=== PATIENT | female | born 1955 | race Caucasian/White ===

== ENCOUNTER 2016-11-27 05:25 | Inpatient (IN) | payer MEDICARE ==
--- NOTE | ~2016-11-27 | CT72 ---
[facility] A Service of [facility] RADIOLOGY TEXT RESULTS PATIENT: ADRYAN ESTEVEZ LOCATION: [facility] 304-01 : [birth year] UNIT #: [id number] AGE: [address]: Angélica Carvalho MD SEX: F ORDER DR: [id number] [facility] [address] [facility]. [place], [place] [address] [id number] I MR#: [id number] Acc #: [id number] NAME: ADRYAN ESTEVEZ : 1955 SEX: F STUDY DATE/TIME: 11/27/2016 05:39 UNIT: A U ROOM: [facility] STUDY DESCRIPTION: CT Head Wo Contrast Stroke Attending Physician: Anders Cleveland M.D. Ordering Physician: Ed Doctor [id number] [facility] Primary Care Physician: Primary Care Physician No MEDICAL IMAGING REPORT This report is preliminary unless electronic signature is present EXAM Head CT 11/27/2016 05:39 INDICATION Patient found around 04:00 a.m. with left-side facial drooping. Patient unresponsive. History of stroke. TECHNIQUE This CT examination was performed with one or more of the following radiation dose reduction techniques: automatic exposure control, adjustment of mA and/or kV according to patient size, and iterative reconstruction. FINDINGS Axial images were obtained from the base to the vertex without contrast. No comparison. There is an old large area of encephalomalacia in the left cerebral hemisphere from a prior MCA distribution infarct. Low attenuation change is now noted in the right MCA distribution in the frontal lobe and parietal lobe worrisome for developing subacute infarct. MRI recommended if patient is a candidate. No acute hemorrhage is seen. The exam is motion degraded. Chronic mucosal thickening is noted in the right maxillary sinus. There is atherosclerotic disease in the carotid siphons. No skull fracture. IMPRESSION 1. Probable rather large subacute right MCA distribution infarct. MRI for follow up is recommended if patient is a candidate. 2. Large old left MCA distribution infarct with extensive encephalomalacia in the left cerebral hemisphere. 3. No acute hemorrhage is seen. ADDENDUM [facility] A Service of [facility] RADIOLOGY TEXT RESULTS PATIENT: ADRYAN ESTEVEZ LOCATION: [facility] 304-01 : [birth year] UNIT #: [id number] AGE: [address]: Angélica Carvalho MD SEX: F ORDER DR: Old lacunar infarcts are noted in the left cerebellar hemisphere. STAT * RESULT Dictated by... Efrem Bower Jr., M.D. THIS IS AN ELECTRONICALLY VERIFIED REPORT Efrem Bower Jr., M.D. at 11/30/2016 8:35 AM YOLA/robe TD: 11/27/2016 05:59 JOB #: [id number] MEDICAL IMAGING REPORT Page 1 of 1 COPY
--- NOTE | ~2016-11-27 | EKG ---
PATIENT: ADRYAN ESTEVEZ UNIT #: [id number] Ventricular Rate: 110 BPM Atrial Rate: 110 BPM P-R Interval: 138 ms QRS Duration: 78 ms Q-T Interval: 324 ms QTC Calculation(Bezet): 438 ms Calculated R Savannah: 153 degrees Calculated T Savannah: 162 degrees Diagnosis Line: Suspect arm lead reversal, interpretation Diagnosis Line: assumes no reversal Diagnosis Line: Sinus tachycardia Diagnosis Line: Low voltage QRS Diagnosis Line: Left posterior fascicular block Diagnosis Line: Nonspecific ST and T wave abnormality Diagnosis Line: Abnormal ECG Diagnosis Line: Confirmed by ASUNCION RUIZ MD ([id number]) on Diagnosis Line: 11/28/2016 4:24:10 PM INTERPRETING MD: SARA ZENDEJAS
--- NOTE | ~2016-11-27 | DS ---
Unit #: [id number] #: [id number] Patient: ADRYAN ESTEVEZ [id number] [address] [place], [place] [address] [id number] I MR#: [id number] NAME: ADRYAN ESTEVEZ ROOM: 304 Age: 61 Sex: F Admission Date: 11/27/2016 : 1955 Discharge Date: 12/02/2016 Attending Physician: Angélica Carvalho M.D. Primary Care Physician: No Primary Care Physician DISCHARGE SUMMARY ADDENDUM HOSPITAL COURSE Patient remained in the hospital due to bed availability at [facility]. She has been transitioned to all medications via PEG, as previously dictated yesterday, and blood pressure has remained stable. She is currently tolerating Jevity 1.5 at 35 mL an hour and this can be titrated up to the goal of 45 mL an hour upon arrival at [facility]. I will note, in regards to patient's decayed teeth, the plan is for her to follow up with Dr. Becker as an outpatient for removal of these teeth. This would likely best be done prior to the initiation of Plavix; however, due to the fact that it has been a rather chronic condition, I think it can also safely be held off until patient is back home. DISCHARGE MEDICATIONS As previously noted. Dictated by... Angélica Carvalho M.D. GLORIA/ludin TD: 12/02/2016 12:06 JOB #: [id number] DISCHARGE SUMMARY Page 1 of 1 X Angélica Carvalho MD X DISCHARGE SUMMARY
--- NOTE | ~2016-11-27 | CO ---
Unit #: [id number] #: [id number] Patient: ADRYAN ESTEVEZ [id number] [address] [place], [place] [address] [id number] I MR#: [id number] NAME: ADRYAN ESTEVEZ ROOM: 304 Age: 61 Sex: F Admission Date: 11/27/2016 : 1955 Attending Physician: Angélica Carvalho M.D. Primary Care Physician: Primary Care Physician No Consultation Date: 11/27/2016 CONSULTATION REPORT REASON FOR CONSULTATION For evaluation of an abscessed tooth. HISTORY OF PRESENT ILLNESS Ms. Estevez is a 61-year-old female, who was found unresponsive by her . She was brought to [facility] Emergency Room where she was examined. The patient does have a history of previous stroke, which resulted in some paralysis of her right side. The states that she does wear partial dentures, but has not complained of any dental pain, has not had any orofacial swelling or drainage. He was unaware of an abscessed tooth. The patient had a CAT scan done in the emergency department, which radiology identified a radiolucency apical to a right maxillary first molar, which is indicative of a dental abscess. Oral Surgery was then consulted for evaluation of tooth and determine if that has any role in the patient's current condition. PHYSICAL EXAMINATION GENERAL: The patient was lying in bed, appeared to be comfortable, was nonverbal. HEENT: On examination, she does not have any facial swelling or erythema. Intraorally, she is missing quite a few teeth. In the right maxillary quadrant, she does have decay of tooth #5, which was fractured. She also has mobility of tooth #3. There is no vestibular swelling. There is no drainage. No erythema. No signs of an abscessed tooth. The patient does not complain or shows any signs of pain on examination of these teeth. IMPRESSION I believe the patient does have an abscess apical to tooth #3. A second possibility is that due to the mobility of tooth #3, she has some extensive bone loss, which will show signs of radiolucency on film, which could also be the source for the radiolucency on the CAT scan. There is no current infection that is draining. No current signs or symptoms of the patient having an abscessed tooth. I do not believe that this is the source of the patient's current condition. I do believe that teeth numbers #3 and #5 need to be extracted to prevent a future abscess or infection for the patient. I explained to her and he agrees that these teeth need to be extracted. I will confer with Ms. Estevez's other doctors in regard to timing for extraction of these teeth. My personal opinion is that these teeth can either be extracted at bedside or we can wait until the patient is discharged and may extract it in an office setting dictated by the patient's current treatment and her diagnosis, especially in regard to any anticoagulation. Unit #: [id number] #: [id number] Patient: ADRYAN ESTEVEZ Dictated by... Jayden Becker D.M.D., [facility] TRS/modl TD: 11/28/2016 02:59 JOB #: [id number] CONSULTATION REPORT Page 1 of 1 X Jayden Becker DMD CONSULTATION REPORT
--- NOTE | ~2016-11-27 | CR72 ---
[facility] A Service of [facility] RADIOLOGY TEXT RESULTS PATIENT: ADRYAN ESTEVEZ LOCATION: [facility] 304-01 : [birth year] UNIT #: [id number] AGE: [address]: Angélica Carvalho MD SEX: F ORDER DR: [id number] [facility] [address] [facility]. [place], [place] [address] [id number] E MR#: [id number] Acc #: [id number] NAME: ADRYAN ESTEVEZ : 1955 SEX: F STUDY DATE/TIME: 11/27/2016 6:53 UNIT: CHRISTOPHER ROOM: STUDY DESCRIPTION: CR Chest Single View Portable Attending Physician: Tung Gold M.D. Ordering Physician: Tung Gold M.D. Primary Care Physician: Primary Care Physician No MEDICAL IMAGING REPORT This report is preliminary unless electronic signature is present EXAM Portable chest HISTORY Shortness of breath, stroke, symptoms beginning tonight. FINDINGS An AP portable view is obtained. The heart size is normal. Lungs are hyperinflated. There is an infiltrate in the left base. It appears slightly nodular in character. No pleural fluid is seen. There is an old healed right humeral fracture. CONCLUSION 1. Radiographic changes consistent with COPD. 2. Left basilar infiltrate. Dictated by... Ishmael Pham M.D. THIS IS AN ELECTRONICALLY VERIFIED REPORT Ishmael Pham M.D. at 11/30/2016 7:16 AM VIKTORIYA/robe TD: 11/27/2016 08:25 JOB #: [id number] MEDICAL IMAGING REPORT Page 1 of 1 COPY
--- NOTE | ~2016-11-27 | XA166 ---
[facility] A Service of [facility] & [facility] RADIOLOGY TEXT RESULTS PATIENT: ADRYAN ESTEVEZ LOCATION: [facility] 304-01 : 57 UNIT #: [id number] AGE: [address]: Angélica Carvalho MD SEX: F ORDER DR: [id number] [place] [id number] [facility]. [place], [place] [address] [id number] I MR#: [id number] Acc #: [id number] NAME: ADRYAN ESTEVEZ : 1955 SEX: F STUDY DATE/TIME: 11/30/2016 8:49 UNIT: C3A U ROOM: [facility] STUDY DESCRIPTION: XA PICC Line Placement WO Port Attending Physician: Angélica Carvalho M.D. Ordering Physician: Angélica Carvalho M.D. Primary Care Physician: No Primary Care Physician MEDICAL IMAGING REPORT This report is preliminary unless electronic signature is present EXAM Left sided PICC line placement INDICATION Need for IV access in a patient with an acute stroke on November 27, 2016. PRE-PROCEDURE The procedure was explained to the patient and/or patient pharmaceutical service representative including risks, benefits, potential complications and potential for alternative forms of treatment. Informed consent was obtained, and prior to initiating the procedure a formal timeout procedure was performed. PROCEDURE Using full standard sterile barrier technique, including caps, gowns, gloves, masks, as well as sterile skin preparation and standard sterile draping, the left arm was prepped and draped in the usual fashion, and real-time sterile ultrasound guidance was used to localize an arm vein and to confirm vessel patency. A hard copy ultrasound image was recorded. After local anesthesia with 1% Xylocaine, the vein was punctured using real-time sterile ultrasound guidance, and an 0.018 guidewire was advanced into the superior vena cava, using fluoroscopic guidance. A 5 British dual-lumen PICC was then measured and deployed with the tip positioned in the superior vena cava. The position of the line was documented with a radiographic image. The line was secured in place with an adhesive dressing and an antibiotic patch was applied. Total fluoro time was 0.1 minutes. AK 1 mGy. IMPRESSION Successful placement of a 5 British dual lumen PowerPICC via the arm under ultrasound and fluoroscopic guidance. The tip of the PICC is in good position in the superior vena cava. [facility] A Service of [facility] RADIOLOGY TEXT RESULTS PATIENT: ADRYAN ESTEVEZ LOCATION: [facility] 304-01 : [birth year] UNIT #: [id number] AGE: [address]: Angélica Carvalho MD SEX: F ORDER DR: Dictated by... Beatriz Doe M.D. THIS IS AN ELECTRONICALLY VERIFIED REPORT Beatriz Doe M.D. at 12/01/2016 5:54 PM AFF/aa TD: 12/01/2016 08:46 JOB #: [id number] MEDICAL IMAGING REPORT Page 1 of 1 COPY
--- NOTE | ~2016-11-27 | CO ---
Unit #: [id number] #: [id number] Patient: ADRYAN ESTEVEZ [id number] [address] [place], [place] [address] [id number] I MR#: [id number] NAME: ADRYAN ESTEVEZ ROOM: 304 Age: 61 Sex: F Admission Date: 11/27/2016 : 1955 Attending Physician: Angélica Carvalho M.D. Consultation Date: 11/27/2016 CONSULTATION REPORT PRIMARY CARE PHYSICIAN Not known, but I believe she goes to [facility]. PROBLEM LIST 1. Prior stroke in 1998, which was left MCA with possible global aphasia and also right-sided weakness. 2. History of seizures since then. 3. Spastic right side hemiplegia. 4. Status post hysterectomy. 5. Status post right wrist surgery after a seizure and a fall. 6. She apparently is a daily drinker and she apparently continues to be a smoker. HISTORY OF PRESENT ILLNESS This is a 61-year-old apparently right-handed white female with prior strokes, who lives at home, has been pretty well considering large MCA stroke that she has had. She is able to communicate with her . She even walks some. She occasionally has seizures and it looks like she may have focal generalized seizure. She has not seen a neurologist lately. Her last normal was 8:30 when she went to bed and around 4:00 this morning, the woke up. He felt that she was drooling and there may be some facial asymmetry and that can sometimes be seen with seizure, but nonetheless she was brought in. Initially, code stroke was called in, but she was outside the window for tPA or any intervention, so we decided to go conservative. CT of the head did not show anything major. CTA showed left M1 segment occlusion, which was probably old and which is where the stroke is. Also there is a concern that she may have a molar collection of fluid, which could be a molar teeth abscess and she may have UTI, so now she is being admitted for further workup. Again not a tPA or interventional candidate. She may have missed her doses of Tegretol in the past and she has had seizures like that. Her Tegretol level is pending. Her dosages not really known and we are trying to find all the records. No change in medication, but compliance has not been guaranteed. PAST MEDICAL HISTORY As discussed above. PAST SURGICAL HISTORY As discussed above. Unit #: [id number] #: [id number] Patient: ADRYAN ESTEVEZ ALLERGIES None known to me. HOME MEDICATIONS Aspirin I believe 81 mg, Trental 400 mg ?, Zanaflex, other medications not known to me. FAMILY HISTORY No history of stroke in young. SOCIAL HISTORY She is and lives with her . She is a pack a day smoker and also daily alcohol consumer, but the details not known at present. REVIEW OF SYSTEMS Could not be obtained because of her aphasia and today has decreased level of consciousness. PHYSICAL EXAMINATION VITAL SIGNS: Temperature 98.5, pulse is 96, respirations 16 to 18, blood pressure 164/94, nonverbal pain was 2, O2 saturations were 98% to 100%, weight of 53 kg. NEUROLOGIC: The patient is arousable. She apparently communicated with the family members. She really did not follow commands for me. She was nonverbal for me. Cranial nerve examination demonstrate respond to threats in the primary arana. Full arana are questionable. Eye movements are conjugate. Pupils are sluggishly reactive. I really did not see any significant facial asymmetry. Hearing seemed to be intact. Tongue was midline. I could not visualize oropharynx or uvula. Head turning was spontaneous. Motor examination, she has spasticity on the right side. Movement on the right side was 2 to 3-. Left side, she is withdrawing at least 4/5. Sensory examination, respond to pain all over. I could not any reflexes. Toes are upgoing on the right and downgoing on the left. Gait and coordination were not evaluated. DIAGNOSTIC STUDIES LABORATORY RESULTS: Reviewed. Her ABGs are unremarkable. Random glucose is 113, sodium was 131, ammonia was 24. Alcohol level was less than 5. White count is 12.3, platelet count is 300. Urine drug screen was negative. Urinalysis showed trace leukocyte esterase and protein positive, 2 to 5 wbc's with 3+ bacteria. IMAGING STUDIES: Including CT scan and CTA, which the CT I reviewed personally. IMPRESSION 1. Decreased level of consciousness in a patient with prior stroke. 2. History of seizure. 3. Could be infection. PLAN Unit #: [id number] #: [id number] Patient: ADRYAN ESTEVEZ I will check her MRI. I will check her other labs and we will see how things go. Cardiology workup is in progress. I will check hemoglobin A1c and further treatment will be based on our findings and how she improves. I am also considering Vimpat instead of Tegretol as her sodium is running a bit low and she has had seizure though the question is where she noncompliant. I will follow her and see how things go. I will keep you informed and I talked to her and son and other family members and also to Cardiology and if she has stroke and further will be based on that. Otherwise seizures or infection causing unmasking is my working diagnoses and I will follow up. Call me for any other questions, issues, or concerns. Dictated by... Dionisio Denny/anthony TD: 11/28/2016 23:06 JOB #: [id number] CONSULTATION REPORT Page 1 of 1 X Kaiser Hansen MD X CONSULTATION REPORT
--- NOTE | ~2016-11-27 | CT24 ---
[facility] A Service of [facility] & [facility] RADIOLOGY TEXT RESULTS PATIENT: ADRYAN ESTEVEZ LOCATION: [facility] 304-01 : 56 UNIT #: [id number] AGE: [address]: HECTOR MILLER MD SEX: F ORDER DR: [id number] [facility] [address] [facility]. [place], [place] [address] [id number] E MR#: [id number] Acc #: [id number] NAME: ADRYAN ESTEVEZ : 1955 SEX: F STUDY DATE/TIME: 11/27/2016 6:07 UNIT: [facility] ROOM: STUDY DESCRIPTION: CT Angio Neck Stroke Attending Physician: Tung Gold M.D. Ordering Physician: Chandler Mabry M.D. Primary Care Physician: Primary Care Physician No MEDICAL IMAGING REPORT This report is preliminary unless electronic signature is present EXAM CT angio head and neck HISTORY Unresponsive, altered mental status with history of known stroke. Found around 4 a.m., left facial droop and history of seizure. This CT exam was performed with one or more of the following radiation dose reduction techniques: automatic exposure control, adjustment of mA and/or kV according to patient size, and iterative reconstruction. FINDINGS CT angiography of the head and neck vessels performed during the intravenous administration of 100 mL Isovue 370. There is an earlier head CT for comparison. Vascular calcifications noted at the arch and involving the proximal left subclavian with mild narrowing of the proximal left subclavian. Evaluation of the right carotid system shows mild partially calcified plaque at the right carotid bifurcation but by NASCET criteria there is essentially 0% stenosis. There is disease in the precavernous right internal carotid artery with mild to moderate stenosis likely. Assessment of left carotid system shows partially calcified plaque at the left carotid bifurcation. By NASCET criteria 0% stenosis is suspected. There is calcified plaque in the cavernous internal carotid artery on the left and this results in at least moderate stenosis. Evaluation of the left vertebral artery shows vessel to be patent throughout the neck and intracranially. Right vertebral artery patent throughout the neck and intracranially, the left is mildly dominant. [facility] A Service of [facility] & [facility] RADIOLOGY TEXT RESULTS PATIENT: ADRYAN ESTEVEZ [id number] [birth year] UNIT #: [id number] AGE: [address]: HECTOR MILLER MD SEX: F ORDER DR: Assessment of the intracranial circulation shows cutoff of the left M1 vessel essentially at its origin. This is consistent with a large area of encephalomalacia in the left MCA territory and this should be a chronic finding. There is an anterior communicating artery present. The left P1 vessel is hypoplastic. There is essentially origin to the left posterior cerebral artery distribution. There is a moderate size right posterior communicator and an anterior communicator. No new intracranial vascular cutoff is suspected. No new central stenosis is suspected. No intracranial aneurysm is suspected allowing for the technical limitation of CT angiography in general for evaluation for aneurysm at the level of the skull base at this institution. There are some emphysematous changes at lung apices. There are degenerative changes in the cervical spine with asymmetric left side facet arthritis. The patient is partially edentulous. There is significant dental disease including large area of lucency around right maxillary molar tooth roots worrisome for abscess. Dental consultation recommended. Polypoid mucosal disease in the right maxillary sinus. Mild mucosal thickening in the ethmoid air cells and mucosal thickening in the left frontal sinus. IMPRESSION 1. There is an intracranial vascular cutoff at the origin of the left M1 vessel. This should, however, be chronic given that there is a large area of encephalomalacia in the left MCA territory. No recent intracranial vascular cutoff is suspected. 2. By NASCET criteria, no hemodynamically significant narrowing is suspected at either carotid bifurcation. There is disease at the bifurcation. Additionally, there is disease involving the bilateral carotid siphons, this appears to be hemodynamically significant and probably worse on the left than the right. 3. Intracranial vascular variations detailed above. No focal central stenosis is seen. 4. Lucency around roots of right maxillary molar tooth worrisome for dental abscess. Given size of area of involvement suggest dental consultation for management. Area of lucency about 1.5 cm in diameter total. Dictated by... Sarah Paulino M.D. THIS IS AN ELECTRONICALLY VERIFIED REPORT Sarah Paulino M.D. at 11/27/2016 2:50 PM MARIO/neil TD: 11/27/2016 07:30 JOB #: [id number] MEDICAL IMAGING REPORT [facility]. [facility] A Service of [facility] & [facility] RADIOLOGY TEXT RESULTS PATIENT: ADRYAN ESTEVEZ LOCATION: [facility] 304-01 : [birth year] UNIT #: [id number] AGE: [address]: HECTOR MILLER MD SEX: F ORDER DR: Page 1 of 1 COPY
--- NOTE | ~2016-11-27 | DS ---
Unit #: [id number] #: [id number] Patient: ADRYAN ESTEVEZ [id number] [address] [place], [place] [address] [id number] MR#: [id number] NAME: ADRYAN ESTEVEZ ROOM: 304 Age: 61 Sex: F Admission Date: 11/27/2016 : 1955 Discharge Date: 12/01/2016 Attending Physician: Angélica Carvalho M.D. Primary Care Physician: No Primary Care Physician DISCHARGE SUMMARY PRINCIPAL DIAGNOSES 1. 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 2. Non-ST segment elevation myocardial infarction. 3. Dysphagia status post percutaneous endoscopic gastrostomy tube placement. 4. Escherichia coli urinary tract infection. 5. Aspiration pneumonia. 6. Sepsis secondary to aspiration pneumonia. 7. High anion gap metabolic acidosis likely secondary to starvation, now resolved. 8. Vitamin B12 deficiency with vitamin B12 level of 215. 9. Hypertension. 10. Underlying seizure disorder secondary to prior stroke. 11. Poor dentition with decayed tooth number 5 and chronic abscess of tooth number 3. 12. Hypokalemia. 13. Chronic deconditioning. 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 CONSULTANTS 1. Dr. Hansen, neurology. 2. Dr. Cade, cardiology. 3. Dr. Becker, oral surgery. 4. Dr. Foss, promotions assistant sales marketing. PROCEDURES PEG tube placement by Dr. Foss on December 01, 2016. This occurred without complication. I will note the patient had a large hiatal hernia and a long segment of Parson esophagus. Gastritis and duodenitis also noted and superficial ulcers in stomach and duodenum. DIAGNOSTIC STUDIES CARDIOVASCULAR: Two-dimensional echocardiogram on November 27, 2016 with ejection fraction of 55% to 60%. Mild tricuspid regurgitation noted. Right ventricular systolic pressure of 40 mmHg. IMAGING: CT of the head without contrast on November 27, 2016 with large right MCA distribution infarct, large old left distribution infarct with extensive encephalomalacia in the left cerebral hemisphere. CT angiogram of the head and neck on November 27, 2016 with intravascular cutoff at the origin of the left M1 vessel. This is chronic. No hemodynamically significant narrowing at either carotid bifurcation; Unit #: [id number] #: [id number] Patient: ADRYAN ESTEVEZ however, there is disease noted. Disease in the bilateral carotid siphons. There is lucency around the root of the right maxillary molar tooth. Chest x-ray on November 27, 2016 with changes of COPD, left basilar infection noted. MRI of the brain without contrast on November 27, 2016 with a large infarct involving the right MCA distribution primarily the posterior distribution. There is some edema and some mass effect. Extensive encephalomalacia involving the left MCA distribution. CT of the head without contrast on November 28, 2016 with a moderate sized subacute infarct in the right MCA distribution in the posterior right temporal and parietal lobes with small areas of associated hemorrhage measuring 1 cm in size. Chronic left MCA distribution infarct with associated encephalomalacia noted. CLINICAL HISTORY AND HOSPITAL COURSE Ms. Estevez is a 61-year-old female who presented to the emergency department with increasing confusion and questionable seizure at home. The patient was unable to be aroused at home and was foaming at the mouth. Please refer to H and P for further details. In the emergency department the patient underwent CT scan of the head without contrast revealing a large right MCA stroke, and she was subsequently admitted. Dr. Hansen was consulted. CT of head and neck was done, as was MRI of the brain, and did reveal, indeed, right MCA stroke. The patient was started on appropriate medications, namely aspirin. There is some concern perhaps this is embolic in origin due to her prior left MCA stroke. However, she had no evidence of dysrhythmia during hospitalization. Also, given her mild hemorrhage associated with her stroke, she is unsafe to anticoagulate at this point. Guidelines do indicate she can be on dual antiplatelet therapy; thus, 2 weeks following her stroke we are going to give aspirin and Plavix. Unfortunately, if the patient develops any further stroke, she will need Coumadin therapy. SAMIR was not done due to her other co-morbid conditions and her difficulty swallowing and with discussion with family who is in agreement. The patient was also found to have elevated troponin upon presentation, peaked at 1.34 and then trended down. Given her other medical co-morbidities, medical management only at this time, which will include Plavix, as outlined below. The patient did have associated dysphagia. She has had some dysphagia due to her prior stroke, but this worsened. Ultimately, Dr. Foss was consulted, and the patient underwent PEG tube placement. Tube feeds will begin today with goals as outlined below. The patient was also found to have aspiration pneumonia and E-coli urinary tract infection. She will be placed on Omnicef and will complete treatment that way. Plan to discharge the patient to [facility] when bed is available. DISCHARGE CONDITION Stable. Unit #: [id number] #: [id number] Patient: ADRYAN ESTEVEZ DISCHARGE STATUS Discharge to [facility]. DISCHARGE MEDICATIONS 1. Tegretol 400 mg per PEG b.i.d. 2. Metoprolol tartrate 25 mg per PEG b.i.d. 3. Lipitor 40 mg per PEG at bedtime. 4. Clonidine patch 0.2 mg topically on Sundays. 5. Aspirin 81 mg per PEG daily. 6. Protonix 40 mg per PEG daily. 7. Zanaflex 4 mg per PEG at bedtime. 8. Vitamin B12 - 1,000 mcg per PEG daily. 9. Omnicef 300 mg per PEG b.i.d. for 4 days. 10. Plavix 75 mg per PEG daily beginning on December 12, 2016. 11. Lisinopril 20 mg per PEG daily. 12. [place] 5/325 mg 1 per PEG q.6 hours p.r.n. pain. 13. Jevity 1.5 with a goal rate of 45 mL an hour. 14. Free water 200 mL per PEG q.6 hours. DISCHARGE INSTRUCTIONS Patient will remain NPO and receive nutrition via PEG. She can increase her strength per PT and OT at [facility]. Will also need speech therapy. FOLLOW-UP 1. Patient will follow up with Dr. Gabriel Kent of outpatient neurology upon discharge from [facility]. 2. She will follow up with her primary care provider upon discharge from [facility]. 3. Will follow up with Dr. Cade as instructed. NOTE: Time spent on discharge - 54 minutes. Dictated by... Angélica Carvalho M.D. GLORIA/jessa TD: 12/01/2016 13:10 JOB #: [id number] DISCHARGE SUMMARY Page 1 of 1 X Angélica Carvalho MD DISCHARGE SUMMARY
--- NOTE | ~2016-11-27 | A ---
[facility] Nutrition Therapy DATE: 11/30/16 Patient: ADRYAN HENDERSONSHELLY Physician: TAMIA Address: [address] [place] [address] Room/Bed: [address] [place] [address], Zip: [place] [address] Admit Date: 11/27/16 Date of : 56 Height: Weight: 124 56.5 NUTRITIONAL ASSESSMENT: REASON: Consult for enteral nutrition recommendations + low BMI Admitting dx: 61 y/o female admitted with AMS PMH: CVA (1998) with residual R side paralysis, seizures, daily ETOH abuse, 1 ppd smoker Anthropometrics: Ht: 66", Wt: 52.4 kg (115 lbs), BMI: 18.6 (underweight) Past weights: 116 lbs on 05/03/16, 128-130 lbs in 2007 and 11/29 Labs: Na 133, K+ 3.0, Glucose 130, POC 114 (11/30), A1C 5.1 (11/27), lipid panel WNL, no Mg/Phos Meds: Novolog per Accucheks, Thiamine, Vit B12 I/O & Bowel function: Last BM 11/26 Skin Integrity: Intact, bruise LFA, 2+ edema LUE Estimated Nutrition Needs: 1072-6794 kcals per day (30-35 kcals/kg) 52-63 g protein per day (1.0-1.2 g/kg) Fluids consistent with kcal needs or per MD Assessment: Chart reviewed, events noted. Patient is on 2L nasal cannula, CT of head negative however MRI showed acute infarct of R MCA, CXR concerning for L side PNA. She has a history of daily ETOH abuse, has partial dentures and tooth abscess that will need to be extracted. She is clinically underweight, but her weight appears stable since 2016. She is non-verbal and is therefore inappropriate for interview. She does have a who is not at the bedside at this time, assistant director of nursing is cleaning her up. LAYBOY OPERATOR eval was not performed due to aphasia. She is at risk for refeeding syndrome due to underweight status and hx of daily ETOH abuse. [place] referral placed. See RD recs below, will follow. Dx: Inadequate energy intake r/t aphasia AEB NPO, need for EN. Intervention: Initiate EN, replace lytes prn Monitoring, Evaluation and Goals: 1. EN consistent with estimated nutrition needs. 2. GI function WNL. 3. Labs WNL. [facility] Nutrition Therapy DATE: 11/30/16 Patient: ADRYAN ESTEVEZ Physician: TAMIA Address: [address] [place] [address] Room/Bed: [address] [place] [address], Zip: [place] [address] Admit Date: 11/27/16 Date of : 57 Height: Weight: 124 56.5 4. Gradual weight gain towards a healthy BMI range. Monitor: Per protocol, criteria to determine if above goals met Recommendations: 1. Once medically feasible start enteral nutrition with Jevity 1.5 @ 20 ml/hr and increase by 10 ml q 12 hours until goal rate of 45 ml/hr is reached, to provide 1620 kcals, 69 g protein and 821 ml water. Once at goal rate add free water flushes of 200 ml QID or per MD noting hyponatremia. 2. Replace lytes prn. Check Mg/Phos and monitor closely, as the patient is at risk for refeeding syndrome given her underweight status and daily ETOH abuse. Increase feeds q 12 hours (slowly) as described above. 3. Continue vitamins and add Folic acid. 4. Please weigh q 3 days for monitoring purposes. 5. LAYBOY OPERATOR eval once appropriate. RD will follow hospital course Moderate nutrition risk Respectfully, Gina Sin, JEOVANY, LD Food and Nutritional Services [facility] cc: client file
--- NOTE | ~2016-11-27 | OR ---
Unit #: [id number] #: [id number] Patient: ADRYAN ESTEVEZ [id number] [address] [place], [place] [address] [id number] MR#: [id number] NAME: ADRYAN ESTEVEZ ROOM: 304 Date of Procedure: 12/01/2016 Admission Date: 11/27/2016 Surgeon: Russ Foss M.D. : 1955 Attending Physician: Angélica Carvalho M.D. OPERATIVE REPORT PROCEDURES PERFORMED 1. Esophagogastroduodenoscopy with PEG-tube placement. 2. Esophagogastroduodenoscopy with biopsy. INDICATIONS FOR PROCEDURE The patient with history of recent stroke, unable to eat, with acute dysphagia, undergoing EGD evaluation for PEG-tube placement. MEDICATIONS Monitored anesthesia. POSTOPERATIVE FINDINGS 1. Long segment Parson esophagus along with a large hiatal hernia. No biopsies were taken at this point. 2. Multiple small gastric and duodenal ulcers along with severe gastritis and duodenitis. Biopsies were taken for H. pylori. 3. Successful placement of G-tube via push method. PLAN Please see inpatient detail. Long-term PPI therapy. Parson's surveillance to be determined after discussions with the patient and family. DESCRIPTION OF PROCEDURE The patient was explained of the procedure, risks, and benefits along with risks and benefits of anesthesia. She was brought to the endoscopy room. Propofol anesthesia was given. Bite-block was placed. The scope was passed down the mouth and esophagus, stomach, duodenum, and distal duodenum. Findings as described. Biopsies were taken. A good spot was identified for G-tube placement using transillumination, which was then confirmed with indentation and safe track method. Skin was cleaned and draped. A small incision was made, trocar and cannula were then passed through the incision into the stomach. Guidewire was passed through it and pulled out of the patient's mouth using the snare and scope from the inside. A push method G-tube was placed over at this time, and pulled out of the anterior abdominal wall, where it was secured with an external bumper. The scope was reintroduced into the stomach, inner bumper was nicely in place. No bleeding or other complications were seen inside. Gently, the scope was pulled out. She tolerated it well. No major complications were seen. Unit #: [id number] #: [id number] Patient: ADRYAN ESTEVEZ Dictated by... Dionisio Edwards/anthony TD: 12/01/2016 08:58 JOB #: [id number] OPERATIVE REPORT Page 1 of 1 X Russ Foss MD PROCEDURE OPERATIVE NOTE
--- NOTE | ~2016-11-27 | HP ---
Unit #: [id number] #: [id number] Patient: ADRYAN ESTEVEZ [id number] [address] [place], [place] [address] [id number] I MR#: [id number] NAME: ADRYAN ESTEVEZ ROOM: 304 Age: 61 Sex: F Admission Date: 11/27/2016 : 1955 Attending Physician: Anders Cleveland M.D. Primary Care Physician: No Primary Care Physician HISTORY AND PHYSICAL CHIEF COMPLAINT Altered mental status. HISTORY OF PRESENT ILLNESS The patient is a 61-year-old female with history of a CVA back in 1998 with right-sided weakness and seizures. The last seizure was a week ago. Brought to the emergency room complaining of altered mental status. The patient is nonverbal, and the history is obtained by speaking with the patient's and the patient's [id number] at the bedside. The patient was doing fine yesterday and had a walk with the patient's . The patient was found to have altered mental status earlier this morning around 4:30 a.m. The patient was found to have grinding teeth associated with foam coming from the mouth and (1) incontinence. The patient was brought to the emergency room for possible seizures. The patient had a stroke workup in the emergency room with negative CT of the head. The patient had a chest x-ray that showed a left basilar infiltrate concerning for pneumonia, and the lactic acid was 2.3, and the patient is being admitted for the above reasons. In the emergency room the patient had a bump in troponin up to 0.17, and cardiology consult has been placed. PAST MEDICAL HISTORY History of a stroke and seizures. The patient has alcohol abuse, paralyzed on the right side. PAST SURGICAL HISTORY History of hysterectomy, right wrist broken. HOME MEDICATIONS She is on Tegretol, aspirin and Zanaflex. ALLERGIES No known drug allergies. SOCIAL HISTORY Smokes a pack of cigarettes daily and drinks alcohol. No illicit drug abuse. REVIEW OF SYSTEMS Unable to obtain. PHYSICAL EXAMINATION GENERAL: The patient is lying in the bed, not in acute distress. Unit #: [id number] #: [id number] Patient: ADRYAN ESTEVEZ VITALS: Temperature 98.5 rectally, pulse 104, respiratory rate 18, blood pressure 160/74, satting 98% on room air. HEENT: Head atraumatic, normocephalic. Dry mucous membranes. NECK: Supple. LUNGS: Decreased air entry at the bases. Positive for rhonchi. HEART: Regular rhythm. Tachycardic. ABDOMEN: Soft. EXTREMITIES: No cyanosis. No clubbing. Right-sided paralysis. NEUROLOGIC: Patient is lethargic and nonverbal. DIAGNOSTIC STUDIES IMAGING: CT of the head without contrast shows probable rather large subacute right MCA distribution infarct. MRI for followup is recommended. Large old left MCA distribution infarct with extensive encephalomalacia in the left cerebral hemisphere. No acute hemorrhage is seen. CT angio of the head and neck. There is an intracranial vascular cutoff at the origin of the left M1 vessel. This should, however, be chronic given that there is a large area of encephalomalacia in the left MCA territory. No recent intracranial vascular cutoff is suspected. By NASCET criteria, no hemodynamically significant narrowing is suspected at either carotid bifurcation. There is disease at the bifurcation. Intracranial vascular variations detailed above. Lucency around roots of right maxillary molar tooth worrisome for dental abscess. Chest x-ray shows radiographic changes consistent with COPD. Left basilar infiltrate. LAB DATA: ABG - pH is 7.38, pCO2 35, pO2 89.6, bicarb 21, oxygen saturation 95.2. Glucose 113, BUN 17, creatinine 0.7, sodium 131, potassium 4.7, chloride 102, bicarb 20, calcium 9, total protein 7.6, AST 18, ALT 12, alkaline phosphatase 63. Lactic acid is 2.3, down to 2. Alcohol is less than 5. INR is 1. WBC 12.3, hemoglobin 13.8, hematocrit 41.9, platelets 300, neutrophils 84.3. Urine tox is negative. UA shows trace leukocyte esterase, positive nitrites and 3+ bacteria. Patient has a troponin elevated up to 0.17. ASSESSMENT 1. Altered mental status. 2. Large subacute right MCA distribution infarct. 3. Non-ST elevation NV. 4. Sepsis. 5. Left basilar infiltrate pneumonia. 6. Dental abscess. PLAN Plan to admit the patient to inpatient with telemetry. The patient will have IV antibiotics with Rocephin and Zithromax. Sepsis protocol. Patient will have cardiology consult and neurology consult. Will also obtain dental consult for the dental abscess. Follow with MRI and echocardiogram. Further recommendations will follow. Dictated by Dionisio Martin Unit #: [id number] #: [id number] Patient: ADRYAN ESTEVEZ TD: 11/27/2016 16:21 JOB #: [id number] HISTORY AND PHYSICAL Page 1 of 1 X X HISTORY AND PHYSICAL
--- NOTE | ~2016-11-27 | EKG ---
PATIENT: ADRYAN ESTEVEZ UNIT #: [id number] Ventricular Rate: 78 BPM Atrial Rate: 78 BPM P-R Interval: 146 ms QRS Duration: 64 ms Q-T Interval: 396 ms QTC Calculation(Bezet): 451 ms P [place]: 63 degrees Calculated R [place]: 69 degrees Calculated T [place]: 85 degrees Diagnosis Line: Normal sinus rhythm Diagnosis Line: Normal ECG Diagnosis Line: When compared with ECG of 27-NOV-2016 06:36, Diagnosis Line: Left posterior fascicular block is no longer Diagnosis Line: Present Diagnosis Line: Non-specific change in ST segment in Inferior Diagnosis Line: leads Diagnosis Line: Nonspecific T wave abnormality no longer evident Diagnosis Line: in Inferior leads Diagnosis Line: Confirmed by ALFONSO FRANCE MD ([id number]) on Diagnosis Line: 12/03/2016 1:12:44 PM INTERPRETING MD: HERNAN
--- NOTE | ~2016-11-27 | CO ---
Unit #: [id number] #: [id number] Patient: ADRYAN ESTEVEZ [id number] [address] [place], [place] [address] [id number] I MR#: [id number] NAME: ADRYAN ESTEVEZ ROOM: 304 Age: 61 Sex: F Admission Date: 11/27/2016 : 1955 Attending Physician: Angélica Carvalho M.D. Primary Care Physician: No Primary Care Physician Consultation Date: 11/27/2016 CONSULTATION REPORT REASON FOR CONSULT Elevated troponin. HISTORY OF PRESENT ILLNESS This is a 61-year-old white female, new to our group, with a past medical history of a cerebrovascular accident in 1998 with right-sided residual. The patient is known to have a seizure disorder, iron deficiency anemia, alcohol and tobacco abuse. She likely has COPD from long-term tobacco use. She presented to the emergency department with altered mental status. According to family, she was found at home around 4 o'clock in the morning, was foaming at the mouth and was confused and difficult to arouse. Her spouse removed her dentures. He noticed that her clothing was wet and that she had lost bladder control. He thought she had had a seizure, which is known to have. A couple days prior to this she did go outside to smoke a cigarette and drink a cup of coffee and she came in and told her later that she thought she had a seizure that morning. There have been no reports of chest pain. There are no reports of dizziness, palpitations or lower extremity edema. She does have some shortness of breath with exertion but is fairly active. Despite her stroke and the use of a brace, she does exercise at [facility], and she is very active around the home. Information has been obtained from her spouse, as she is unable to give a history due to lethargy. In the emergency department, her temperature was 98.5, pulse 104, respirations 18, blood pressure 160/74. Initial labs revealed a lactic acid of 2.3. She was given normal saline, Rocephin and azithromycin. CT of the head without contrast revealed no acute findings. CTA of the head and neck revealed some chronic changes, as well as encephalomalacia in the left MCA territory. There was no significant narrowing of the carotids by NASCET criteria. However, there was some hemodynamically significant stenosis at the carotid siphons. There was a possible dental abscess noted in the right maxillary molar. Urinalysis was concerning for a urinary tract infection. CBC did reveal a left shift. Renal function was normal. Cardiac enzymes were initially negative at 0.05. However, troponin increased to 0.17. Cardiology was consulted for further evaluation. EKG was obtained and revealed sinus tachycardia with a possible right axis deviation. The EKG study was poor, and there was motion artifact noted. Repeat study is pending. PAST MEDICAL HISTORY 1. History of left MCA cerebrovascular accident in 1998 with right-sided residual. 2. Seizure disorder. Unit #: [id number] #: [id number] Patient: ADRYAN ESTEVEZ 3. Iron deficiency anemia. 4. Probable COPD. 5. Hysterectomy. 6. Active alcohol abuse. 7. Active tobacco abuse. PAST SURGICAL HISTORY Hysterectomy. HOME MEDICATIONS 1. Tegretol 400 mg p.o. b.i.d. 2. Aspirin, need to clarify dosing. 3. Zanaflex 4 mg p.o. at bedtime. ALLERGIES No known drug allergies. SOCIAL HISTORY The patient lives in a private residence with her spouse. She is an active smoker and smokes up to 2 packs of cigarettes per day but apparently does not smoke the entire cigarette, only a couple of hits off each one. She does drink a couple of beers or glasses of wine per day. There are no reports of heavier use. There are no reports of illicit drug use. FAMILY HISTORY Her father had a myocardial infarction at the age of 76. REVIEW OF SYSTEMS Difficult to obtain from patient. Please see details in the HPI. PHYSICAL EXAMINATION VITAL SIGNS: Temperature 98.5, pulse 96, blood pressure 164/94. CONSTITUTIONAL: This is a 61-year-old white female who is somewhat obtunded and can only open her eyes. SKIN: Warm and dry. NECK: Supple. No jugular vein distention. No hepatojugular reflux. Normal carotid upstrokes. No carotid bruits auscultated. HEART: S1, S2. Regular rate and rhythm. No murmurs, rubs or gallops. LUNGS: Bilateral breath sounds have good air entry throughout all lung arana. Respirations even and unlabored. No rales, rhonchi or wheezes. ABDOMEN: Soft, nontender, nondistended. Positive bowel sounds auscultated x4 quadrants. No ascites noted. EXTREMITIES: Bilateral lower extremities have no pretibial pitting edema. DP and PT pulses are 2+. Capillary refill less than 3 seconds. DIAGNOSTIC STUDIES LABORATORY: White blood cell count 12.3, hemoglobin 13.8, hematocrit 41.9, platelets 300. Sodium 131, potassium 4.7, chloride 102, CO2 20, BUN 17, creatinine 0.7, glucose 113, ammonia 24, lactic acid 2.3. INR 1. Troponin 0.05 and 0.17. IMAGING: CT angio of the head and neck reveal intracranial vascular cutoff of left (1) vessel. Chronic encephalomalacia of the left MCA territory. NASCET criteria reveals no significant narrowing except for hemodynamically significant stenosis in the bilateral carotid siphons, left greater than right. Questionable dental abscess in the right maxillary molar. Unit #: [id number] #: [id number] Patient: ADRYAN ESTEVEZ CARDIOVASCULAR: Electrocardiogram reveals sinus tachycardia with a ventricular rate of 114 beats per minute. Motion artifact. Possible right axis deviation. Nonspecific ST-T wave changes. QTc 463 msec. IMPRESSION 1. Indeterminate troponin, probable supply and demand. 2. Seizure disorder. 3. Probable new cerebrovascular accident. 4. Old left hemisphere cerebrovascular accident with right-sided residual. 5. COPD. 6. History of iron deficiency anemia. 7. Sinus tachycardia. 8. Active alcohol abuse. 9. Active tobacco abuse. PLAN 1. The patient presented to the hospital with altered mental status. She was admitted, and neurology was consulted for further management. 2. Cardiology was consulted due to elevated troponin, which is indeterminate at this time. Will trend cardiac enzymes and EKGs 3. TSH and fasting lipid profile will be obtained. 4. Repeat electrocardiogram will be reviewed, since the first one did have significant motion artifact. Two-D echocardiogram will be obtained to assess LV function and valves. The patient's blood pressure is elevated with systolic readings in the 160s to 170s. She will be started on p.r.n. Lopressor with parameters for blood pressure and heart rate control. 5. The patient is being followed by neurology, and MRI of the brain is pending. 6. Prior to discharge, she will need further education on smoking cessation. Dictated by... Milena Flores APRN for Dionisio Cummins TD: 11/30/2016 16:07 JOB #: [id number] CONSULTATION REPORT Page 1 of 1 X X CONSULTATION REPORT
--- NOTE | ~2016-11-27 | CT71 ---
[facility] A Service of [facility] RADIOLOGY TEXT RESULTS PATIENT: ADRYAN ESTEVEZ LOCATION: [facility] 304-01 : [birth year] UNIT #: [id number] AGE: [address]: Angélica Carvalho MD SEX: F ORDER DR: [id number] [facility] [address] [facility]. [place], [place] [address] [id number] I MR#: [id number] #: [id number] NAME: ADRYAN ESTEVEZ : 1955 SEX: F STUDY DATE/TIME: 11/28/2016 20:33 UNIT: [address] ROOM: [facility] STUDY DESCRIPTION: CT Head Wo Contrast Attending Physician: Angélica Carvalho M.D. Ordering Physician: Kaiser Hansen M.D. Primary Care Physician: No Primary Care Physician MEDICAL IMAGING REPORT This report is preliminary unless electronic signature is present EXAM CT brain without contrast HISTORY Loss of speech for 2 days with extremity weakness. Acute infarct 2 days ago. TECHNIQUE This CT exam was performed with one or more of the following radiation dose reduction techniques: automatic control, adjustment of mA and/or kV according to patient size, and iterative reconstruction. FINDINGS CT brain without contrast demonstrates low-density changes within the areas of previously demonstrated restricted diffusion in the right temporal and parietal lobes, noted on MRI brain yesterday, indicating subacute infarct. There are fairly subtle areas of relative increased attenuation within the right parietal infarct, indicating hemorrhage, corresponding to the similar abnormalities on MRI brain yesterday. No new intracranial hemorrhage. Large chronic left MCA distribution infarct with large area of encephalomalacia within the left MCA territory, and compensatory dilatation of left lateral ventricle. Mucosal thickening in the right maxillary sinus and mild mucosal thickening in the left sphenoid sinus. IMPRESSION 1. Moderate sized subacute infarct in the right MCA distribution in the posterior right temporal and parietal lobes with small areas of associated hemorrhage, measuring up to approximately 1 cm corresponding to same findings on MRI brain yesterday. No new intracranial hemorrhage. 2. Large chronic left MCA distribution infarct with encephalomalacia within the left MCA distribution. [facility] A Service of [facility] RADIOLOGY TEXT RESULTS PATIENT: ADRYAN ESTEVEZ LOCATION: [facility] 304-01 : [birth year] UNIT #: [id number] AGE: [address]: Angélica Carvalho MD SEX: F ORDER DR: Dictated by... Jc Zarate M.D. THIS IS AN ELECTRONICALLY VERIFIED REPORT Jc Zarate M.D. at 11/29/2016 10:22 PM DFL/rnr TD: 11/28/2016 23:20 JOB #: [id number] MEDICAL IMAGING REPORT Page 1 of 1 COPY
--- NOTE | ~2016-11-27 | CT18 ---
[facility] A Service of [facility] & [facility] RADIOLOGY TEXT RESULTS PATIENT: ADRYAN ESTEVEZ LOCATION: [facility] 304-01 : [birth year] UNIT #: [id number] AGE: [address]: HECTOR MILLER MD SEX: F ORDER DR: [id number] [id number] [place], [place] [address] [id number] E MR#: [id number] Acc #: [id number] NAME: ADRYAN ESTEVEZ : 1955 SEX: F STUDY DATE/TIME: 11/27/2016 6:07 UNIT: [facility] ROOM: STUDY DESCRIPTION: CT Angio Head Stroke Attending Physician: Tung Gold M.D. Ordering Physician: Chandler Mabry M.D. Primary Care Physician: Primary Care Physician No MEDICAL IMAGING REPORT This report is preliminary unless electronic signature is present EXAM CT angio head FINDINGS Result text under order number [id number]. Please see this order for result text. Dictated by... Sarah Paulino M.D. THIS IS AN ELECTRONICALLY VERIFIED REPORT Sarah Paulino M.D. at 11/27/2016 2:50 PM Enoch TD: 11/27/2016 07:33 JOB #: [id number] MEDICAL IMAGING REPORT Page 1 of 1 COPY
--- NOTE | ~2016-11-27 | MR18 ---
[facility] A Service of [facility] & [facility] RADIOLOGY TEXT RESULTS PATIENT: ADRYAN ESTEVEZ LOCATION: [facility] 304-01 : [birth year] UNIT #: [id number] AGE: [address]: HECTOR CLEVELAND MD SEX: F ORDER DR: [id number] [facility] [address] [place], [place] [address] [id number] I MR#: [id number] Acc #: [id number] NAME: ADRYAN ESTEVEZ : 1955 SEX: F STUDY DATE/TIME: 11/27/2016 14:20 [facility] ROOM: [facility] STUDY DESCRIPTION: MR Brain Wo Contrast Attending Physician: Hector Cleveland M.D. Ordering Physician: Kaiser Hansen M.D. Primary Care Physician: No Primary Care Physician MRI CENTER REPORT This report is preliminary unless electronic signature is present. EXAM MRI of the brain without contrast. HISTORY 61-year-old female unresponsive, found on floor, left facial droop. History of prior stroke and now suspected acute right MCA infarct. COMPARISON Head CT, 11/27/2016. FINDINGS Multiplanar, multiecho imaging was performed of the brain to include axial, FLAIR, and diffusion weighted imaging. Examination demonstrates a large focus of advanced encephalomalacia involving the distribution of the left middle cerebral artery extending to the vertex with ex vacuo dilatation of the left lateral ventricle. This is compatible with an old left MCA infarct. Again with extensive encephalomalacia and brain loss. Corresponding atrophy of the left cerebral peduncle and brainstem. There is a large focus of restricted diffusion involving the right posterior MCA distribution with several smaller foci of restricted diffusion within the deep nuclei and in the anterior distribution of the right MCA. There is corresponding low signal on the ADC map and this is compatible with an acute infarct. Foci of low signal on the gradient echo T2-weighted sequences may represent areas of cortical hemorrhage but no sizeable hematoma, and no areas of an T1 hyperintensity are identified. There is mild mass effect with some effacement the right lateral ventricle. No abnormal extraaxial fluid collections are identified. Bony calvaria, skull base, mastoids unremarkable. IMPRESSION 1. Acute infarct involving the right MCA predominately the posterior distribution with findings compatible with an acute infarct. Areas STS. [facility] A Service of [facility] RADIOLOGY TEXT RESULTS PATIENT: ADRYAN ESTEVEZ LOCATION: [facility] 304-01 : [birth year] UNIT #: [id number] AGE: [address]: HECTOR CLEVELAND MD SEX: F ORDER DR: of T2 signal abnormality on the gradient echo T2-weighted images may represent areas of cortical hemorrhage but no intraparenchymal hemorrhage or hematoma identified. There is edema and some mass effect with mass effect on the right lateral ventricle. 2. Extensive encephalomalacia involving the left MCA distribution compatible with a sequela of an old infarct with corresponding left cerebral peduncle atrophy and volume loss. Dictated by... Kathy Low M.D. THIS IS AN ELECTRONICALLY VERIFIED REPORT Kathy Low M.D. at 11/27/2016 10:27 PM Wilson TD: 11/27/2016 21:43 JOB #: [id number] MRI CENTER REPORT Page 1 of 1 COPY
[~2016-11-27 05:25] MED LIST: TEGRETOL PO
[2016-11-27 05:49] LABS: BASOPHIL# 0.1 X10e3 (0-0.3); BASOPHIL% 0.4 % (0-2.5); EOSINOPHIL% 0.3 % (0.0-7.0); HEMATOCRIT 41.9 % (35.0-45.0); HEMOGLOBIN 13.8 gm/dL (12.0-16.0); LYMPHOCYTE# 1.2 X10e3 (1.0-3.5); LYMPHOCYTE% 9.6 % (17.0-45.0); MEAN CELL VOLUME 98.3 FL (83-96); MEAN CORPUSCULAR HEMOGLOBIN 32.4 PG (28-34); MEAN PLATELET VOLUME 7.2 FL (6.5-11.5); MONOCYTE# 0.7 X10e3 (0-1.0); MONOCYTE% 5.4 % (3.0-12.0); NEUTROPHIL# 10.3 X10e3 (1.5-7.1); NEUTROPHIL% 84.3 % (40-75); PLATELET COUNT 300 X10e3 (140-420); RED BLOOD COUNT 4.27 X10e (3.90-5.30); RED CELL DISTRIBUTION WIDTH 13.3 % (11.0-15.5); WHITE BLOOD COUNT 12.3 X10e3 (4.0-10.5)
[2016-11-27 05:50] LABS: DIFF IND NO
[2016-11-27 06:02] LABS: PARTIAL THROMBOPLASTIN TIME 20.5 SECONDS (23.5-31.3)
[2016-11-27 06:21] LABS: POC - CREATININE 0.96 mg/dL (0.44-1.03); POC - GFR >60.0 mL/min (>60)
[2016-11-27 06:21] LABS: ALBUMIN SERUM 4.4 g/dL (3.5-5.0); BILIRUBIN, DIRECT 0.1 mg/dL (0.0-0.2); BILIRUBIN,INDIRECT 0.4 mg/dL (0.0-0.9); BILIRUBIN,TOTAL 0.5 mg/dL (0.2-2.0); BUN/CREATININE RATIO 24.28; CREATININE SERUM 0.7 mg/dL (0.6-1.4); GLOM FILT RATE Estimated 94.2 mL/min (>60); POTASSIUM 4.7 mmol/L (3.5-5.1); PROTEIN TOTAL SERUM 7.6 g/dL (6.0-8.3)
[2016-11-27] MEDS ORDERED: TEGRETOL PO (06:43)
[2016-11-27] MEDS ORDERED: ASPIRIN81 MG (06:43)
[2016-11-27 07:03] LABS: POC - CKMB 1.3 ng/mL (0.0-7.9); POC - TROPONIN <0.05 ng/mL (<=0.05)
[2016-11-27 07:03] LABS: URINE SOURCE CLEAN CATCH
[2016-11-27 07:21] LABS: CULTURE INDICATED? YES; URINE APPEARANCE CLEAR; URINE BACTERIA AUWI 3+ (NEGATIVE); URINE BILIRUBIN NEG (NEG); URINE BLOOD TRACE (NEG); URINE COLOR YELLOW; URINE GLUCOSE NEG (NEG); URINE KETONE NEG (NEG); URINE LEUKOCYTE ESTERASE TRACE (NEG); URINE NITRATE POS (NEG); URINE PROTEIN NEG (NEG); URINE SPECIFIC GRAVITY 1.051 (1.003-1.035); URINE SQUAMOUS EPITHELIAL CELL OCC /[HPF]; URINE UROBILINOGEN 0.2 MG/DL (NEG)
[2016-11-27 07:55] LABS: ARTERIAL BLD GAS O2 SATURATION 95.2 % (90.0-100.0); ARTERIAL BLOOD GAS HCO3 21.1 mmol/L; ARTERIAL BLOOD GAS MET HB 0.7 %sat (0.0-2.0); ARTERIAL BLOOD GAS PO2 89.6 mmHg (80.0-100); ARTERIAL BLOOD GAS pH 7.388 (7.350-7.450)
[2016-11-27 07:57] LABS: ARTERIAL BLOOD GAS ALLEN TEST N; ARTERIAL BLOOD GAS ART SITE LEFT RADIAL; ARTERIAL DRAW? YES
[2016-11-27 08:50] LABS: POC - CKMB 2.7 ng/mL (0.0-7.9); POC - TROPONIN 0.17 ng/mL (<=0.05)
[2016-11-27 08:53] LABS: AMPHETAMINE NEG (NEG); BARBITURATES NEG (NEG); BENZODIAZEPINES NEG (NEG); COCAINE NEG (NEG); MARIJUANA NEG (NEG); OPIATES NEG (NEG); TRICYCLIC ANTIDEPRESSANTS NEG (NEG); U METHADONE NEG (NEG)
[2016-11-27 10:47] LABS: AMPHETAMINE NEG (NEG); BARBITURATES NEG (NEG); BENZODIAZEPINES NEG (NEG); COCAINE NEG (NEG); MARIJUANA NEG (NEG); OPIATES NEG (NEG); TRICYCLIC ANTIDEPRESSANTS NEG (NEG); U METHADONE NEG (NEG)
[2016-11-27] MEDS ORDERED: ZANAFLEX PO (10:55)
[2016-11-27 12:47] LABS: FOLATE (FOLIC ACID) 7.3 ng/mL (>5.8)
[2016-11-27 17:42] LABS: %MB 7.9 % (0.0-4.0); MB 10.3 ng/ml
[2016-11-27 21:48] LABS: %MB 5.9 % (0.0-4.0); MB 8.6 ng/ml
[2016-11-28 06:49] LABS: HEMATOCRIT 40.5 % (35.0-45.0); HEMOGLOBIN 13.3 gm/dL (12.0-16.0); MEAN CELL VOLUME 97.7 FL (83-96); MEAN CORPUSCULAR HEMOGLOBIN 32.2 PG (28-34); MEAN CORPUSCULAR HGB CONC 32.9 g/dL (30-36); MEAN PLATELET VOLUME 7.1 FL (6.5-11.5); RED BLOOD COUNT 4.14 X10e (3.90-5.30); RED CELL DISTRIBUTION WIDTH 13.2 % (11.0-15.5); WHITE BLOOD COUNT 15.4 X10e3 (4.0-10.5)
[2016-11-28 08:00] LABS: CALCIUM SERUM 8.8 mg/dL (8.4-10.2); CREATININE SERUM 0.5 mg/dL (0.6-1.4); GLOM FILT RATE Estimated 105.2 mL/min (>60); POTASSIUM 3.7 mmol/L (3.5-5.1)
[2016-11-29 08:05] LABS: HEMATOCRIT 39.2 % (35.0-45.0); HEMOGLOBIN 13.1 gm/dL (12.0-16.0); MEAN CELL VOLUME 96.3 FL (83-96); MEAN CORPUSCULAR HEMOGLOBIN 32.2 PG (28-34); MEAN CORPUSCULAR HGB CONC 33.5 g/dL (30-36); MEAN PLATELET VOLUME 6.6 FL (6.5-11.5); RED BLOOD COUNT 4.08 X10e (3.90-5.30); RED CELL DISTRIBUTION WIDTH 13.2 % (11.0-15.5); WHITE BLOOD COUNT 12.5 X10e3 (4.0-10.5)
[2016-11-29 08:37] LABS: CALCIUM SERUM 8.4 mg/dL (8.4-10.2); CREATININE SERUM 0.4 mg/dL (0.6-1.4); GLOM FILT RATE Estimated 113.2 mL/min (>60)
[2016-11-30 12:06] LABS: BASOPHIL# 0.1 X10e3 (0-0.3); BASOPHIL% 1.4 % (0-2.5); EOSINOPHIL# 0.2 X10e3 (0-0.7); EOSINOPHIL% 1.9 % (0.0-7.0); HEMATOCRIT 35.6 % (35.0-45.0); HEMOGLOBIN 12.3 gm/dL (12.0-16.0); LYMPHOCYTE# 1.5 X10e3 (1.0-3.5); LYMPHOCYTE% 15.1 % (17.0-45.0); MEAN CORPUSCULAR HEMOGLOBIN 33.1 PG (28-34); MEAN CORPUSCULAR HGB CONC 34.5 g/dL (30-36); MEAN PLATELET VOLUME 6.6 FL (6.5-11.5); MONOCYTE# 1.1 X10e3 (0-1.0); MONOCYTE% 10.9 % (3.0-12.0); NEUTROPHIL# 6.9 X10e3 (1.5-7.1); NEUTROPHIL% 70.7 % (40-75); PLATELET COUNT 237 X10e3 (140-420); RED BLOOD COUNT 3.71 X10e (3.90-5.30); RED CELL DISTRIBUTION WIDTH 13.2 % (11.0-15.5); WHITE BLOOD COUNT 9.8 X10e3 (4.0-10.5)
[2016-11-30 12:09] LABS: DIFF IND NO
[2016-11-30 12:37] LABS: CALCIUM SERUM 8.5 mg/dL (8.4-10.2); CREATININE SERUM 0.4 mg/dL (0.6-1.4); GLOM FILT RATE Estimated 113.2 mL/min (>60); MAGNESIUM 1.8 mg/dL (1.6-3.0)
[2016-12-01 05:27] LABS: HEMATOCRIT 32.9 % (35.0-45.0); HEMOGLOBIN 11.2 gm/dL (12.0-16.0); MEAN CELL VOLUME 96.4 FL (83-96); MEAN CORPUSCULAR HEMOGLOBIN 32.9 PG (28-34); MEAN CORPUSCULAR HGB CONC 34.1 g/dL (30-36); MEAN PLATELET VOLUME 6.8 FL (6.5-11.5); RED BLOOD COUNT 3.41 X10e (3.90-5.30); RED CELL DISTRIBUTION WIDTH 12.9 % (11.0-15.5); WHITE BLOOD COUNT 10.3 X10e3 (4.0-10.5)
[2016-12-01 07:10] LABS: BILIRUBIN,TOTAL 0.5 mg/dL (0.2-2.0); BUN/CREATININE RATIO 27.5; CALCIUM SERUM 8.3 mg/dL (8.4-10.2); CREATININE SERUM 0.4 mg/dL (0.6-1.4); GLOM FILT RATE Estimated 113.2 mL/min (>60); MAGNESIUM 1.9 mg/dL (1.6-3.0); POTASSIUM 4.4 mmol/L (3.5-5.1); PROTEIN TOTAL SERUM 5.7 g/dL (6.0-8.3)
[2016-12-02 04:13] LABS: HEMATOCRIT 34.3 % (35.0-45.0); HEMOGLOBIN 11.5 gm/dL (12.0-16.0); MEAN CELL VOLUME 98.2 FL (83-96); MEAN CORPUSCULAR HEMOGLOBIN 32.8 PG (28-34); MEAN CORPUSCULAR HGB CONC 33.4 g/dL (30-36); RED BLOOD COUNT 3.49 X10e (3.90-5.30); WHITE BLOOD COUNT 13.8 X10e3 (4.0-10.5)
[2016-12-02 04:53] LABS: BILIRUBIN,TOTAL 0.6 mg/dL (0.2-2.0); BUN/CREATININE RATIO 43.33; CALCIUM SERUM 8.6 mg/dL (8.4-10.2); CREATININE SERUM 0.3 mg/dL (0.6-1.4); GLOM FILT RATE Estimated 124.5 mL/min (>60); MAGNESIUM 1.9 mg/dL (1.6-3.0); POTASSIUM 3.5 mmol/L (3.5-5.1); PROTEIN TOTAL SERUM 5.9 g/dL (6.0-8.3)
== END 2016-12-02 18:18 | DRG 871 ==
LOC: CED 05:25 → C3A PCU 08:50 → CEDOF 08:50 → CED 08:56 → CEDOF 10:14 → C3A PCU 10:14
PROVIDERS: Emergency Medicine; Internal Medicine; Nurse Practitioner Family; Psychiatry & Neurology Neurology
PROC: B24BYZZ Ultrasonography of Heart with Aorta using Other Contrast (ICD-10-PCS; 2016-11-27)
PROC: 02HV33Z Insertion of Infusion Device into Superior Vena Cava, Percutaneous Approach (ICD-10-PCS; 2016-11-30)
PROC: B518YZA Fluoroscopy of Superior Vena Cava using Other Contrast, Guidance (ICD-10-PCS; 2016-11-30)
PROC: B548ZZA Ultrasonography of Superior Vena Cava, Guidance (ICD-10-PCS; 2016-11-30)
PROC: 0DB68ZX Excision of Stomach, Via Natural or Artificial Opening Endoscopic, Diagnostic (ICD-10-PCS; principal; 2016-12-01 07:45)
PROC: 0DH63UZ Insertion of Feeding Device into Stomach, Percutaneous Approach (ICD-10-PCS; 2016-12-01 07:45)
DX: A41.9 Sepsis, unspecified organism (principal); I63.511 Cerebral infarction due to unspecified occlusion or stenosis of right middle cerebral artery; I21.4 Non-ST elevation (NSTEMI) myocardial infarction; J69.0 Pneumonitis due to inhalation of food and vomit; G93.41 Metabolic encephalopathy; I69.351 Hemiplegia and hemiparesis following cerebral infarction affecting right dominant side; E87.2 Acidosis; K26.9 Duodenal ulcer, unspecified as acute or chronic, without hemorrhage or perforation; N39.0 Urinary tract infection, site not specified; K04.7 Periapical abscess without sinus; G40.909 Epilepsy, unspecified, not intractable, without status epilepticus; D50.9 Iron deficiency anemia, unspecified; F10.10 Alcohol abuse, uncomplicated; F17.210 Nicotine dependence, cigarettes, uncomplicated; R00.0 Tachycardia, unspecified; J44.9 Chronic obstructive pulmonary disease, unspecified; Z90.710 Acquired absence of both cervix and uterus; Z79.82 Long term (current) use of aspirin; G93.89 Other specified disorders of brain; I69.320 Aphasia following cerebral infarction; K22.70 Barrett's esophagus without dysplasia; K44.9 Diaphragmatic hernia without obstruction or gangrene; K25.9 Gastric ulcer, unspecified as acute or chronic, without hemorrhage or perforation; K29.70 Gastritis, unspecified, without bleeding; K29.80 Duodenitis without bleeding; B96.20 Unspecified Escherichia coli [E. coli] as the cause of diseases classified elsewhere; E87.6 Hypokalemia
CPT/HCPCS: 36415; 36600; 51702; 70450; 70496; 70498; 70551; 71010; 76937; 77001; 80048; 80053; 80061; 80076; 80156; 80307; 81003; 82140; 82550; 82553; 82565; 82607; 82746; 82803; 82947; 83036; 83605; 83735; 84132; 84443; 84484; 85025; 85027; 85610; 85730; 86140; 87040; 87086; 87088; 87186; 88305; 88312; 92507; 92523-GN; 92526; 92610; 93005; 93306; 96361; 96374; 97110; 97112; 97163; 97167; 97530; 97535; 99291; C1751; C9254; G0480; G8978-GP; G8979-GP; G8987-GO; G8988-GO; G8996-GN; G8997-GN; J0171; J0360; J0456; J0696; J1885; J2060; J2270; J2405; J2543; J3411; J3420; J3475; J3490; Q9967